=== PATIENT | male | born 1990 | race Two or more races ===

== ENCOUNTER 2021-08-09 10:53 | Emergency (ER) | payer SELFPAY ==
[2021-08-09 11:02] VITALS: BP 170/119; PULSE 110; TEMP 98; BMI 25.0
[2021-08-09 11:39] LABS: HEMOGLOBIN 13.1 GM/dl (11.7-16.9)
[2021-08-09 11:51] LABS: HEMATOCRIT 41.3 % (35.4-49); MCH 24.2 pg (25.7-33.7); MCHC 31.9 g/dl (32.0-35.9); MEAN CELL VOLUME 75.9 fl (80-96); MEAN PLT VOLUME 9.4 fl (7.5-11.1); PLATELET COUNT 260 10^3/uL (134-434); RBC 5.44 M/mm3 (4.00-5.60); WHITE BLOOD COUNT 9.8 K/mm3 (4.0-10.8)
[2021-08-09 11:59] LABS: ALBUMIN 4.2 g/dl (3.4-5.0); BILIRUBIN,TOTAL 0.6 mg/dl (0.2-1); CALCIUM 9.5 mg/dl (8.5-10); CREATININE 0.8 mg/dl (0.55-1.3); TOT PROT 7.6 g/dl (6.4-8.2)
[2021-08-09] MEDS ORDERED: CLINDAMYCIN HCL 300 MG CAPSULE PO ONE (13:48)
[2021-08-09] MEDS ORDERED: AMOX TR/POT CLAV 875MG/125MG TABLETS (FP) PO ONE (13:48)
[2021-08-09] MEDS ORDERED: CLINDAMYCIN HCL 150 MG CAPSULE (FP) ONE (13:59)
[2021-08-09] MEDS ORDERED: AMOX TR/POT CLAV 875MG/125MG TABLETS (FP) ONE (14:00)
== END 2021-08-09 14:11 | disposition home or self-care (01) ==
LOC: FER 10:53
DX: H05.011 Cellulitis of right orbit (principal)
CPT/HCPCS: 36415; 70481-TC; 80053; 85025; 99285-25; Q9967